=== PATIENT | female | born 1935 | race Caucasian/White ===

== ENCOUNTER 2016-06-12 07:55 | Emergency (ER) | payer OTHER ==
[2016-06-12] VITALS (8 sets, daily range): BP systolic 149–201; BP diastolic 71–114; PULSE 72–90; RESP 12–20; TEMP 98; O2SAT 93–97
[~2016-06-12] VITALS: Ht 160 cm; Wt 59.5 kg
[~2016-06-12 07:55] MED LIST: HYDR-2768 PO; HYDR-3533 PO; IRBE1TAB37 PO
[2016-06-12] MEDS ORDERED: HYDR25TA5 PO (08:10)
[2016-06-12] MEDS ORDERED: IRBE75TA5 PO (08:10)
[2016-06-12] MEDS ORDERED: ASPI81TA81 PO (08:10)
[2016-06-12] MEDS ORDERED: LUTE20CA PO (08:11)
[2016-06-12] MEDS ORDERED: VITA100036 PO (08:12)
--- NOTE | 2016-06-12 08:26 | PD ---
HPI Chief Complaint: Pain: Acute or Chronic Time Seen by Provider: 08:09 Travel History International Travel<30 days: No Contact w/Intl Traveler<30days: No Traveled to known affect area: No History of Present Illness HPI The patient was seen and examined in the presence of the nurse. This patient complains of a flare of her sciatica. She has chronic intermittent right sided sciatica. 2 days ago she was bending over to clean her carpets and at that exact moment of bending over flare of her sciatica. No trauma. Denies fever. No urinary complaints. It is located in her right low back/upper buttock and radiates down her leg to the foot. This is typical of her sciatica flare. Symptoms severity is moderate. No alleviating factors PFSH Past Medical History Anxiety: Yes Cancer: Yes (SKIN CA) Cardiovascular Problems: Yes Diminished Hearing: No Hypertension: Yes Psychiatric: Yes ?: Not Menopausal: Yes : 2 Para: 2 Past Surgical History Appendectomy: Yes Gynecologic Surgery: Yes Hysterectomy: Yes Tonsillectomy: Yes Other Surgery: Yes (BLADDER LIFT SURG, SKIN CA REMOVED FROM THROAT, MASTOID SURGERY) Social History Alcohol Use: Yes (DRINKS VODKA EVERY DAY WITH SOME ELIZABETH) Tobacco Use: No Substance Use: No Allergies-Medications (Allergen,Severity, Reaction): Coded Allergies: Codeine (Verified Allergy, Severe, 06/12/16) Contrast Media (Verified Allergy, Severe, 06/12/16) Darvon (Verified Allergy, Severe, 06/12/16) Reported Meds & Prescriptions Reported Meds & Active Scripts Active Reported Vitamin D3 (Cholecalciferol) 1,000 Unit Cap 1,000 Units PO DAILY Lutein 20 Mg Cap 20 Mg PO DAILY Aspir-81 (Aspirin) 81 Mg Tabdr 81 Mg PO HS Hydrochlorothiazide 25 Mg Tab 25 Mg PO DAILY Irbesartan 75 Mg Tab 75 Mg PO DAILY Review of Systems General / Constitutional: No: Fever Eyes: No: Visual changes HENT: No: Headaches Cardiovascular: No: Chest Pain or Discomfort Respiratory: No: Shortness of Breath Gastrointestinal: No: Abdominal Pain Genitourinary: No: Dysuria Musculoskeletal: Positive: Pain Skin: No Rash Neurologic: No: Weakness Psychiatric: No: Depression Endocrine: No: Polydipsia Hematologic/Lymphatic: No: Easy Bruising Physical Exam Narrative NEUROLOGICAL: Awake and alert. Pupils are equal round and reactive. Motor and sensory grossly within normal limits. Five out of 5 muscle strength in all muscle groups. Normal speech. GASTROINTESTINAL: Abdomen soft, non-tender, nondistended. Positive bowel sounds. No hepato-splenomegaly, or palpable masses. No guarding. SKIN: Inspection shows no rash or ulcers. Palpation shows no induration or nodules. Back: No midline or CVA tenderness Positive straight leg raise on the right side RESPIRATORY: Respiratory effort unlabored, no retractions or use of accessory muscles. Breath sounds are clear and symmetric. CARDIOVASCULAR: Regular rate and rhythm without murmur. Extremities showed no edema or varicosities. Psych: Normal mood and affect. Normal insight and judgment. Data Data Last Documented VS Vital Signs Date Time Temp Pulse Resp B/P Pulse Ox O2 Delivery O2 Flow Rate FiO2 06/12/16 09:54 80 20 149/74 96 Nasal Cannula 2.0 06/12/16 08:03 98.0 Orders Ondansetron Inj (Zofran Inj) (06/12/16 08:30) Morphine Inj (Morphine Inj) (06/12/16 08:30) Clonidine (Catapres) (06/12/16 08:30) Ketorolac Inj (Toradol Inj) (06/12/16 10:45) MDM Medical Decision Making Medical Screen Exam Complete: Yes Emergency Medical Condition: Yes Medical Record Reviewed: Yes Differential Diagnosis Sciatica, lumbar strain, pyelonephritis Narrative Course I have reviewed the patient's electronic medical record. Patient was here 4 times in 2014 for sciatica problems Patient is neurologically intact and her presentation is consistent with a sciatica flare She also has accelerated hypertension with systolic exceeding 200 I gave her dose of morphine and Zofran injection I gave her dose of clonidine and will reassess blood pressure Blood pressure 152 systolic on recheck The morphine made her nauseous despite Zofran and she feels a bit drowsy from it I'm giving her Toradol injection We had extensive discussion with patient and family about medications. She doesn't tolerate most of the medicines and does not want any prescriptions. She will stick with Advil and Tylenol. Recommended she discuss this with her family physician. She use a walker that she has at home. No neurologic deficit or red flags to suggest emergent imaging is indicated. Her clinical picture is classic for sciatica which she has had before. Diagnosis Primary Impression: Right-sided low back pain with right-sided sciatica Qualified Code: M54.41 - Acute right-sided low back pain with right-sided sciatica Additional Impression: Accelerated hypertension Additional Instructions: The patient was advised to follow up with their physician and return if they worsen. Med/Other Pt SpecificInfo: Other Disposition: 01 DISCHARGE HOME Condition: Stable Hugo Tse MD Jun 12, 2016 08:26
[2016-06-12] MEDS ORDERED: cloNIDine HCL 0.1 MG TAB PO ONE (08:30)
[2016-06-12] MEDS ORDERED: MORPHINE SULFATE 4 MG/ML INJ IM ONE (08:30)
[2016-06-12] MEDS ORDERED: ONDANSETRON HCL 4 MG/2 ML VIAL IM ONE (08:30)
[2016-06-12] MEDS ORDERED: KETOROLAC TROMETHAMINE 60 MG/2 ML (IM) VIAL IM ONE (10:45)
== END 2016-06-12 13:49 | disposition home or self-care (01) ==
LOC: NEPE 07:55
DX: M54.41 Lumbago with sciatica, right side (principal); I10 Essential (primary) hypertension
CPT/HCPCS: 96372; 99283; J1885; J2270; J2405

== ENCOUNTER 2016-09-12 20:29 | Emergency (ER) | payer OTHER ==
[~2016-09-12] VITALS: Ht 160 cm; Wt 60.0 kg
[~2016-09-12 20:29] MED LIST changes: +ASPI81TA81 PO; -HYDR-2768 PO; -HYDR-3533 PO; +HYDR25TA5 PO; -IRBE1TAB37 PO; +IRBE75TA5 PO; +LUTE20CA PO; +VITA100036 PO
[2016-09-12 20:37] VITALS: BP 133/67; PULSE 79; RESP 18; TEMP 97.4; O2SAT 95
[2016-09-12] MEDS ORDERED: SODIUM CHLORIDE 0.9% FLUSH 10 ML FLUSH IVF PRN (21:00)
--- NOTE | 2016-09-12 21:03 | PD ---
HPI Chief Complaint: Syncope/Near-Syncope Time Seen by Provider: 20:57 Travel History International Travel<30 days: No Contact w/Intl Traveler<30days: No Traveled to known affect area: No History of Present Illness HPI 81-year-old female presents to the emergency temporary EMS for evaluation of possible syncope/weakness. The patient states she has been feeling weak, especially in the mornings for the past 2 days. She states that this gets better throughout the day. She states that it may be her anxiety because she' ll take her anxiety pill and it will improve her symptoms. Patient states that today, she had a couple of alcoholic beverages, vodka and water. She then ate dinner. She states that after dinner, she felt extremely weak and fell out of her chair. She denies hitting her head or LOC. No syncope. She states that she was weak and unable to get up off the floor. Her roommate came in and was also unable to lift her up so he called 911. The patient denies any headache or visual changes. She denies any chest pain or abdominal pain. She states she did have some shortness of breath, but this has resolved. She denies any nausea, vomiting, diarrhea. Patient does report a history of sciatica and states that her legs have been hurting her, but not at this time. PFSH Past Medical History Anxiety: Yes Cancer: Yes (SKIN CA) Cardiovascular Problems: Yes Diminished Hearing: No Hypertension: Yes Medical other: Yes (chronic back pain) Psychiatric: Yes Tetanus Vaccination: Unknown Influenza Vaccination: No ?: Not Menopausal: Yes : 2 Para: 2 Past Surgical History Appendectomy: Yes Gynecologic Surgery: Yes Hysterectomy: Yes Tonsillectomy: Yes Other Surgery: Yes (BLADDER LIFT SURG, SKIN CA REMOVED FROM THROAT, MASTOID SURGERY) Social History Alcohol Use: Yes (DRINKS VODKA EVERY DAY WITH SOME ELIZABETH) Tobacco Use: No Substance Use: No Allergies-Medications (Allergen,Severity, Reaction): Coded Allergies: Codeine (Verified Allergy, Severe, 09/12/16) Contrast Media (Verified Allergy, Severe, 09/12/16) Darvon (Verified Allergy, Severe, 09/12/16) Reported Meds & Prescriptions Reported Meds & Active Scripts Active Reported Vitamin D3 (Cholecalciferol) 1,000 Unit Cap 1,000 Units PO DAILY Lutein 20 Mg Cap 20 Mg PO DAILY Aspir-81 (Aspirin) 81 Mg Tabdr 81 Mg PO HS Hydrochlorothiazide 25 Mg Tab 25 Mg PO DAILY Irbesartan 75 Mg Tab 75 Mg PO DAILY Review of Systems Except as stated in HPI: all other systems reviewed are Neg Physical Exam Narrative GENERAL: Well-nourished, well-developed elderly female patient, afebrile. Patient has no alcohol on her breath. Patient has c-collar on. SKIN: Focused skin assessment warm/dry. HEAD: Normocephalic. Atraumatic. ENT: Mucosa pink and moist. No erythema or exudates. No uvular edema. No uvular , palatal, or tonsillar deviation. Airway patent. Nasal turbinates appear normal without nasal blood, purulent drainage or septal hematoma. Bilateral tympanic membranes are clear without erythema or perforation. EYES: No scleral icterus. No injection or drainage. NECK: Supple, trachea midline. No JVD or lymphadenopathy. CARDIOVASCULAR: Regular rate and rhythm without murmurs, gallops, or rubs. RESPIRATORY: Breath sounds equal bilaterally. No accessory muscle use. Lungs sounds are clear to auscultation. GASTROINTESTINAL: Abdomen soft, non-tender, nondistended. MUSCULOSKELETAL: No cyanosis, or edema. Bilateral upper and lower extremity strength 5/5. All extremities are neurovascularly intact. BACK: Nontender without obvious deformity. No CVA tenderness. Data Data Last Documented VS Vital Signs Date Time Temp Pulse Resp B/P Pulse Ox O2 Delivery O2 Flow Rate FiO2 09/12/16 21:13 97 Room Air 09/12/16 20:37 97.4 79 18 133/67 Orders Electrocardiogram (09/12/16 20:55) Complete Blood Count With Diff (09/12/16 20:55) Comprehensive Metabolic Panel (09/12/16 20:55) Magnesium (Mg) (09/12/16 20:55) Ckmb (Isoenzyme) Profile (09/12/16 20:55) Troponin I (09/12/16 20:55) Act Partial Throm Time (Ptt) (09/12/16 20:55) Prothrombin Time / Inr (Pt) (09/12/16 20:55) Urinalysis - C+S If Indicated (09/12/16 20:55) Chest, Single Ap (09/12/16 20:55) Ct Brain W/O Iv Contrast(Rout) (09/12/16 20:55) Ct Cerv Spine W/O Contrast (09/12/16 20:55) Ecg Monitoring (09/12/16 20:55) Iv Access Insert/Monitor (09/12/16 20:55) Oximetry (09/12/16 20:55) Sodium Chloride 0.9% Flush (Ns Flush) (09/12/16 21:00) Alcohol (Ethanol) (09/12/16 20:55) Remove Cervical Collar (09/12/16 21:54) Potassium Chloride (Kcl) (09/12/16 22:00) Labs Laboratory Tests Test 09/12/16 09/12/16 21:00 22:25 White Blood Count 9.6 TH/MM3 Red Blood Count 3.82 MIL/MM3 Hemoglobin 13.1 GM/DL Hematocrit 38.0 % Mean Corpuscular Volume 99.6 FL Mean Corpuscular Hemoglobin 34.4 PG Mean Corpuscular Hemoglobin 34.5 % Concent Red Cell Distribution Width 12.9 % Platelet Count 282 TH/MM3 Mean Platelet Volume 8.0 FL Neutrophils (%) (Auto) 65.9 % Lymphocytes (%) (Auto) 25.1 % Monocytes (%) (Auto) 8.2 % Eosinophils (%) (Auto) 0.4 % Basophils (%) (Auto) 0.4 % Neutrophils # (Auto) 6.4 TH/MM3 Lymphocytes # (Auto) 2.4 TH/MM3 Monocytes # (Auto) 0.8 TH/MM3 Eosinophils # (Auto) 0.0 TH/MM3 Basophils # (Auto) 0.0 TH/MM3 CBC Comment DIFF FINAL Differential Comment Prothrombin Time 10.2 SEC Prothromb Time International 0.9 RATIO Ratio Activated Partial 25.5 SEC Thromboplast Time Sodium Level 133 MEQ/L Potassium Level 2.9 MEQ/L Chloride Level 94 MEQ/L Carbon Dioxide Level 26.0 MEQ/L Anion Gap 13 MEQ/L Blood Urea Nitrogen 12 MG/DL Creatinine 0.84 MG/DL Estimat Glomerular Filtration 65 ML/MIN Rate Random Glucose 120 MG/DL Calcium Level 9.0 MG/DL Magnesium Level 1.6 MG/DL Total Bilirubin 0.2 MG/DL Aspartate Amino Transf 22 U/L (AST/SGOT) Alanine Aminotransferase 38 U/L (ALT/SGPT) Alkaline Phosphatase 110 U/L Total Creatine Kinase 51 U/L Troponin I LESS THAN 0.02 NG/ML Total Protein 7.1 GM/DL Albumin 3.6 GM/DL Ethyl Alcohol Level 264 MG/DL Urine Color YELLOW Urine Turbidity CLEAR Urine pH 7.0 Urine Specific [place] 1.013 Urine Protein NEG mg/dL Urine Glucose (UA) NEG mg/dL Urine Ketones NEG mg/dL Urine Occult Blood NEG Urine Nitrite NEG Urine Bilirubin NEG Urine Urobilinogen LESS THAN 2.0 MG/DL Urine Leukocyte Esterase NEG Urine RBC 1 /hpf Urine WBC 1 /hpf Urine Mucus FEW /lpf Microscopic Urinalysis Comment CATH-CULT NOT IND MDM Medical Decision Making Medical Screen Exam Complete: Yes Emergency Medical Condition: Yes Medical Record Reviewed: Yes Interpretation(s) chest x-ray - CONCLUSION: No acute disease. CT brain - CONCLUSION: 1. No acute hemorrhage or mass effect. 2. Mucosal thickening in the right sphenoid sinus. CT cervical spine - CONCLUSION: Negative trauma CT. Differential Diagnosis Electrolyte abnormality versus intracranial abnormality versus ACS versus dehydration versus alcohol intoxication versus anxiety Narrative Course 81-year-old elderly female presents to the emergency department via EMS for evaluation of generalized weakness, inability to get up off the floor. She does report drinking vodka and water today. EKG, CBC, CMP, magnesium, CK, troponin, PT, PTT/INR, alcohol level, UA are ordered and pending. Chest x-ray, CT of the brain, CT the cervical spine are ordered and pending. EKG shows sinus rhythm, heart rate 72, no acute ST changes. CBC shows no acute. CMP shows hyponatremia of 133, hypokalemia of 2.9, glucose 120. Magnesium is 1.6. CK is 51. Troponin is 0.02. Coags are unremarkable. Alcohol level is 264. UA is negative. Chest x-ray shows no acute disease. CT of the brain shows No acute hemorrhage or mass effect. CT of the cervical spine is negative. My attending physician, Dr. Esparza, is aware of findings and agrees with plan and disposition. Patient is given potassium 40 meq PO. Symptoms are consistent with alcohol intoxication. Patient will be allowed to rest in the emergency department and will be reassessed before being discharged. Diagnosis Primary Impression: Alcohol intoxication Qualified Code: F10.920 - Alcohol intoxication, uncomplicated Referrals: Primary Care Physician call for appointment Patient Instructions: Alcohol Intoxication (ED), General Instructions Additional Instructions: Please drink alcohol in moderation or none at all. Follow-up with your primary care physician. Return to the emergency department for any acute worsening of symptoms. Med/Other Pt SpecificInfo: No Change to Meds Disposition: 01 DISCHARGE HOME Condition: Stable Rebecca Francois September 12, 2016 21:03
[2016-09-12 21:13] VITALS: O2SAT 97
--- NOTE | 2016-09-12 21:22 | RADRPT ---
EXAM DATE/TIME: 09/12/2016 21:09 [facility] COMPARISON: No previous studies available for comparison. INDICATIONS : Weakness. MEDICAL HISTORY : None. SURGICAL HISTORY : None. ENCOUNTER: Initial ACUITY: 1 day PAIN SCORE: 0/10 LOCATION: Bilateral chest FINDINGS: A single view of the chest demonstrates the lungs to be symmetrically aerated without evidence of mas s, infiltrate or effusion. The cardiomediastinal contours are unremarkable. Osseous structures are intact. CONCLUSION: No acute disease. Wiley Lorenzo MD on September 12, 2016 at 21:21 Board Certified Radiologist. This report was verified electronically.
[2016-09-12 21:23] LABS: AUTOMATED NEUTROPHIL # 6.4 TH/MM3 (1.8-7.7); BASOPHIL % 0.4 % (0.0-2.0); EOSINOPHIL % 0.4 % (0.0-4.0); HEMO FLAGS DIFF FINAL; LYMPH % 25.1 % (9.0-44.0); LYMPHOCYTE # 2.4 TH/MM3 (1.0-4.8); MEAN CELL VOLUME 99.6 FL (80.0-100.0); MEAN CORPUSCULAR HEMOGLOBIN 34.4 PG (27.0-34.0); MEAN CORPUSCULAR HGB CONC 34.5 % (32.0-36.0); MONO % 8.2 % (0.0-8.0); NEUT % 65.9 % (16.0-70.0); PLATELET COUNT 282 TH/MM3 (150-450); RED BLOOD COUNT 3.82 MIL/MM3 (4.00-5.30); RED CELL DISTRIBUTION WIDTH 12.9 % (11.6-17.2); WHITE BLOOD COUNT 9.6 TH/MM3 (4.0-11.0)
[2016-09-12 21:34] LABS: APTT (PATIENT) 25.5 SEC (24.3-30.1); INTERNATIONAL NORMALIZED RATIO 0.9 RATIO; PROTHROMBIN TIME - PATIENT 10.2 SEC (9.8-11.6)
--- NOTE | 2016-09-12 21:48 | RADRPT ---
EXAM DATE/TIME: 09/12/2016 21:38 [facility] COMPARISON: No previous studies available for comparison. INDICATIONS : Found on floor. Possible syncopal episode. RADIATION DOSE: 37.89 CTDIvol (mGy) MEDICAL HISTORY : Cardiovascular disease. Hypertension. SURGICAL HISTORY : Hysterectomy. ENCOUNTER: Initial ACUITY: 1 day PAIN SCALE: 0/10 LOCATION: cranial TECHNIQUE: Multiple contiguous axial images were obtained of the head. Using automated exposure control and adj ustment of the mA and/or kV according to patient size, radiation dose was kept as low as reasonably a chievable to obtain optimal diagnostic quality images. FINDINGS: CEREBRUM: The ventricles are normal for age. No evidence of midline shift, mass lesion, hemorrhage or acute in farction. No extra-axial fluid collections are seen. POSTERIOR FOSSA: The cerebellum and brainstem are intact. The 4th ventricle is midline. The cerebellopontine angle i s unremarkable. EXTRACRANIAL: The visualized portion of the orbits is intact. There is mucosal thickening in the right sphenoid sin us. SKULL: The calvaria is intact. No evidence of skull fracture. CONCLUSION: 1. No acute hemorrhage or mass effect. 2. Mucosal thickening in the right sphenoid sinus. Wiley Lorenzo MD on September 12, 2016 at 21:46 Board Certified Radiologist. This report was verified electronically.
[2016-09-12 21:52] LABS: ANION GAP 13 MEQ/L (5-15); AST (GOT) 22 U/L (15-37); BLOOD UREA NITROGEN 12 MG/DL (7-18); CHLORIDE 94 MEQ/L (98-107); GLOMERULAR FILTRATION RATE 65 ML/MIN (>89); MAGNESIUM 1.6 MG/DL (1.5-2.5); SODIUM (NA) 133 MEQ/L (136-145)
--- NOTE | 2016-09-12 21:53 | RADRPT ---
EXAM DATE/TIME: 09/12/2016 21:38 [facility] COMPARISON: No previous studies available for comparison. INDICATIONS : Found on floor. Possible syncopal episode. RADIATION DOSE: 21.35 CTDIvol (mGy) MEDICAL HISTORY : Cardiovascular disease. Hypertension. SURGICAL HISTORY : Hysterectomy. ENCOUNTER: Initial ACUITY: 1 day PAIN SCALE: 0/10 LOCATION: neck TECHNIQUE: Volumetric scanning of the cervical spine was performed. Multiplanar reconstructions i n the sagittal, coronal and oblique axial planes were performed. Using automated exposure control a nd adjustment of the mA and/or kV according to patient size, radiation dose was kept as low as reason ably achievable to obtain optimal diagnostic quality images. FINDINGS: The sagittal reconstructions demonstrate normal alignment and normal prevertebral soft tissues. The d ens is intact and there is a normal atlantoaxial relationship. There are degenerative changes involvi ng the atlantoaxial joint. The axial images demonstrate that the vertebral bodies and posterior elements are intact. The soft ti ssues are within normal limits. There is no evidence of acute fracture or malalignment. There is low facet joints. CONCLUSION: Negative trauma CT. Wiley Lorenzo MD on September 12, 2016 at 21:49 Board Certified Radiologist. This report was verified electronically.
[2016-09-12 21:54] LABS: ALKALINE PHOSPHATASE 110 U/L (45-117); ALT (GPT) 38 U/L (10-53); POTASSIUM 2.9 MEQ/L (3.5-5.1); TOTAL BILIRUBIN ADULT 0.2 MG/DL (0.2-1.0)
[2016-09-12 21:55] LABS: CREATINE KINASE 51 U/L (26-192)
[2016-09-12] MEDS ORDERED: POTASSIUM CHLORIDE 20 MEQ CONTROLLED RELEASE TAB PO ONE (22:00)
[2016-09-12 22:49] LABS: BLOOD, URINE NEG (NEG); GLUCOSE,URINE NEG (NEG); KETONE, URINE NEG (NEG); MUCUS URINE FEW /lpf (OCC); NITRITE,URINE NEG (NEG); URINE COLOR YELLOW (YELLW/STRAW)
[2016-09-12 22:50] LABS: COMMENT (UR) CATH-CULT NOT IND; CULTURE IF INDICATED CATH CULTURE NOT IND
--- NOTE | 2016-09-12 23:26 | PD ---
Physical Exam Date Seen by Provider: September 12, 2016 Data Data Last Documented VS Vital Signs Date Time Temp Pulse Resp B/P Pulse Ox O2 Delivery O2 Flow Rate FiO2 09/13/16 03:38 83 16 148/63 96 Room Air 09/12/16 20:37 97.4 Orders Electrocardiogram (09/12/16 20:55) Complete Blood Count With Diff (09/12/16 20:55) Comprehensive Metabolic Panel (09/12/16 20:55) Magnesium (Mg) (09/12/16 20:55) Ckmb (Isoenzyme) Profile (09/12/16 20:55) Troponin I (09/12/16 20:55) Act Partial Throm Time (Ptt) (09/12/16 20:55) Prothrombin Time / Inr (Pt) (09/12/16 20:55) Urinalysis - C+S If Indicated (09/12/16 20:55) Chest, Single Ap (09/12/16 20:55) Ct Brain W/O Iv Contrast(Rout) (09/12/16 20:55) Ct Cerv Spine W/O Contrast (09/12/16 20:55) Ecg Monitoring (09/12/16 20:55) Iv Access Insert/Monitor (09/12/16 20:55) Oximetry (09/12/16 20:55) Sodium Chloride 0.9% Flush (Ns Flush) (09/12/16 21:00) Alcohol (Ethanol) (09/12/16 20:55) Remove Cervical Collar (09/12/16 21:54) Potassium Chloride (Kcl) (09/12/16 22:00) Ckmb (Isoenzyme) Profile (09/12/16 23:26) Troponin I (09/12/16 23:26) Labs Laboratory Tests Test 09/12/16 09/12/16 09/12/16 00:45 21:00 22:25 Total Creatine Kinase 77 U/L 51 U/L Troponin I LESS THAN 0.02 LESS THAN 0.02 NG/ML NG/ML White Blood Count 9.6 TH/MM3 Red Blood Count 3.82 MIL/MM3 Hemoglobin 13.1 GM/DL Hematocrit 38.0 % Mean Corpuscular Volume 99.6 FL Mean Corpuscular Hemoglobin 34.4 PG Mean Corpuscular Hemoglobin 34.5 % Concent Red Cell Distribution Width 12.9 % Platelet Count 282 TH/MM3 Mean Platelet Volume 8.0 FL Neutrophils (%) (Auto) 65.9 % Lymphocytes (%) (Auto) 25.1 % Monocytes (%) (Auto) 8.2 % Eosinophils (%) (Auto) 0.4 % Basophils (%) (Auto) 0.4 % Neutrophils # (Auto) 6.4 TH/MM3 Lymphocytes # (Auto) 2.4 TH/MM3 Monocytes # (Auto) 0.8 TH/MM3 Eosinophils # (Auto) 0.0 TH/MM3 Basophils # (Auto) 0.0 TH/MM3 CBC Comment DIFF FINAL Differential Comment Prothrombin Time 10.2 SEC Prothromb Time International 0.9 RATIO Ratio Activated Partial 25.5 SEC Thromboplast Time Sodium Level 133 MEQ/L Potassium Level 2.9 MEQ/L Chloride Level 94 MEQ/L Carbon Dioxide Level 26.0 MEQ/L Anion Gap 13 MEQ/L Blood Urea Nitrogen 12 MG/DL Creatinine 0.84 MG/DL Estimat Glomerular Filtration 65 ML/MIN Rate Random Glucose 120 MG/DL Calcium Level 9.0 MG/DL Magnesium Level 1.6 MG/DL Total Bilirubin 0.2 MG/DL Aspartate Amino Transf 22 U/L (AST/SGOT) Alanine Aminotransferase 38 U/L (ALT/SGPT) Alkaline Phosphatase 110 U/L Total Protein 7.1 GM/DL Albumin 3.6 GM/DL Ethyl Alcohol Level 264 MG/DL Urine Color YELLOW Urine Turbidity CLEAR Urine pH 7.0 Urine Specific [place] 1.013 Urine Protein NEG mg/dL Urine Glucose (UA) NEG mg/dL Urine Ketones NEG mg/dL Urine Occult Blood NEG Urine Nitrite NEG Urine Bilirubin NEG Urine Urobilinogen LESS THAN 2.0 MG/DL Urine Leukocyte Esterase NEG Urine RBC 1 /hpf Urine WBC 1 /hpf Urine Mucus FEW /lpf Microscopic Urinalysis Comment CATH-CULT NOT IND MDM Medical Record Reviewed: Yes Supervised Visit with HALLEY: Yes Interpretation(s) Vital Signs Date Time Temp Pulse Resp B/P Pulse Ox O2 Delivery O2 Flow Rate FiO2 09/12/16 21:13 97 Room Air 09/12/16 20:37 97.4 79 18 133/67 95 Laboratory Tests Test 09/12/16 09/12/16 21:00 22:25 White Blood Count 9.6 TH/MM3 (4.0-11.0) Red Blood Count 3.82 MIL/MM3 (4.00-5.30) Hemoglobin 13.1 GM/DL (11.6-15.3) Hematocrit 38.0 % (35.0-46.0) Mean Corpuscular Volume 99.6 FL (80.0-100.0) Mean Corpuscular Hemoglobin 34.4 PG (27.0-34.0) Mean Corpuscular Hemoglobin 34.5 % Concent (32.0-36.0) Red Cell Distribution Width 12.9 % (11.6-17.2) Platelet Count 282 TH/MM3 (150-450) Mean Platelet Volume 8.0 FL (7.0-11.0) Neutrophils (%) (Auto) 65.9 % (16.0-70.0) Lymphocytes (%) (Auto) 25.1 % (9.0-44.0) Monocytes (%) (Auto) 8.2 % (0.0-8.0) Eosinophils (%) (Auto) 0.4 % (0.0-4.0) Basophils (%) (Auto) 0.4 % (0.0-2.0) Neutrophils # (Auto) 6.4 TH/MM3 (1.8-7.7) Lymphocytes # (Auto) 2.4 TH/MM3 (1.0-4.8) Monocytes # (Auto) 0.8 TH/MM3 (0-0.9) Eosinophils # (Auto) 0.0 TH/MM3 (0-0.4) Basophils # (Auto) 0.0 TH/MM3 (0-0.2) CBC Comment DIFF FINAL Differential Comment Prothrombin Time 10.2 SEC (9.8-11.6) Prothromb Time International 0.9 RATIO Ratio Activated Partial 25.5 SEC Thromboplast Time (24.3-30.1) Sodium Level 133 MEQ/L (136-145) Potassium Level 2.9 MEQ/L (3.5-5.1) Chloride Level 94 MEQ/L (98-107) Carbon Dioxide Level 26.0 MEQ/L (21.0-32.0) Anion Gap 13 MEQ/L (5-15) Blood Urea Nitrogen 12 MG/DL (7-18) Creatinine 0.84 MG/DL (0.50-1.00) Estimat Glomerular Filtration 65 ML/MIN (>89) Rate Random Glucose 120 MG/DL (74-106) Calcium Level 9.0 MG/DL (8.5-10.1) Magnesium Level 1.6 MG/DL (1.5-2.5) Total Bilirubin 0.2 MG/DL (0.2-1.0) Aspartate Amino Transf 22 U/L (15-37) (AST/SGOT) Alanine Aminotransferase 38 U/L (10-53) (ALT/SGPT) Alkaline Phosphatase 110 U/L (45-117) Total Creatine Kinase 51 U/L (26-192) Troponin I LESS THAN 0.02 NG/ML (0.02-0.05) Total Protein 7.1 GM/DL (6.4-8.2) Albumin 3.6 GM/DL (3.4-5.0) Ethyl Alcohol Level 264 MG/DL (0-5) Urine Color YELLOW (YELLW/STRAW) Urine Turbidity CLEAR (CLEAR) Urine pH 7.0 (5.0-8.5) Urine Specific Sulph[place] 1.013 (1.002-1.035) Urine Protein NEG mg/dL (NEG-TRACE) Urine Glucose (UA) NEG mg/dL (NEG) Urine Ketones NEG mg/dL (NEG) Urine Occult Blood NEG (NEG) Urine Nitrite NEG (NEG) Urine Bilirubin NEG (NEG) Urine Urobilinogen LESS THAN 2.0 MG/DL (LESS THAN 2.0) Urine Leukocyte Esterase NEG (NEG) Urine RBC 1 /hpf (0-3) Urine WBC 1 /hpf (0-5) Urine Mucus FEW /lpf (OCC) Microscopic Urinalysis Comment CATH-CULT NOT IND Last Impressions Head CT 09/12/162054 Signed Impressions: Service Date/Time: Monday, September 12, 2016 21:38 - CONCLUSION: 1. No acute hemorrhage or mass effect. 2. Mucosal thickening in the right sphenoid sinus. Wiley Lorenzo MD Chest X-Ray 09/12/162054 Signed Impressions: Service Date/Time: Monday, September 12, 2016 21:09 - CONCLUSION: No acute disease. Wiley Lorenzo MD Cervical Spine CT 09/12/162054 Signed Impressions: Service Date/Time: Monday, September 12, 2016 21:38 - CONCLUSION: Negative trauma CT. Wiley Lorenzo MD Narrative Course I, Dr. Esparza, have reviewed the advance practice practitioner's documentation and am in agreement, met with the patient face to face, made the diagnosis, and the medical decision making was done by me. *My assessment and Findings: Acute alcohol intoxication as well as hypo-kalemia Patient is an 81-year-old female who is brought to the emergency room by EMS for evaluation of weakness. Patient reports that she has not been feeling well for the past few days, reports that she has been feeling weak in her knees. Reports that today, she did have a few alcoholic beverages and fell to her knees and had problems getting up because of her weakness. Patient denies any trauma to head or neck. She denies any loss of consciousness or syncopal episode. Patient denies any chest pain or shortness of breath. Patient with no complaints while in the emergency room. While in the emergency room, EKG was obtained, patient with nonacute EKG, CT of her head and cervical spine were ordered as well as x-ray of the chest is benign. Labs are ordered - patient appears to have sodium of 133 and a potassium of 2.9. Her alcohol level is 264. Patient appears intoxicated well emergency room. I do think that her symptoms are all from alcohol intoxication. At this time, will continue to monitor patient and discharge her home once she is sober. [id number]: patient re-evaluated, patient ambulating in ER with normal gait. Patient with no complaints at this time. Reports that she is feeling much better. I encouraged her to decrease her alcohol intake and to eat more foods rich in potassium. Patient will call her for a ride home. Patient thankful for help. Diagnosis Primary Impression: Alcohol intoxication Qualified Code: F10.920 - Alcohol intoxication, uncomplicated Additional Impressions: Weakness generalized Hypokalemia Referrals: Primary Care Physician call for appointment Patient Instructions: General Instructions, Alcohol Intoxication (ED) Additional Instruction: Please drink alcohol in moderation or none at all. Follow-up with your primary care physician. Return to the emergency department for any acute worsening of symptoms. Disposition: 01 DISCHARGE HOME Condition: Stable Patricia Esparza DO September 12, 2016 23:26
[2016-09-13 01:38] LABS: CREATINE KINASE 77 U/L (26-192)
[2016-09-13 03:38] VITALS: BP 148/63; PULSE 83; RESP 16; O2SAT 96
--- NOTE | 2016-09-13 19:38 | EKG ---
Date Performed: 09/12/2016 Time Performed: 20:43:38 PTAGE: 81 years EKG: Sinus rhythm NORMAL ECG Compared to prior tracing no significant change DOCTOR: Alicia Evans Interpretating Date/Time 09/13/2016 19:37:07
== END 2016-09-13 06:17 | disposition home or self-care (01) ==
LOC: NEPC 20:29
DX: F10.120 Alcohol abuse with intoxication, uncomplicated (principal); I10 Essential (primary) hypertension; R53.1 Weakness; E87.6 Hypokalemia; F41.9 Anxiety disorder, unspecified
CPT/HCPCS: 70450; 71010; 72125; 80053; 80307; 81001; 82550; 83735; 84484; 85025; 85610; 85730; 93005; 99285